=== PATIENT | male | born 1985 | race African-American/Black ===

== ENCOUNTER 2018-08-10 09:40 | Emergency (ER) | payer MEDICAID ==
[~2018-08-10] VITALS: Ht 185.4 cm; Wt 235.0 kg
[2018-08-10 09:47] VITALS: BP 146/92; Ht 185.4 cm; Wt 235.0 kg
== END 2018-08-10 10:25 | disposition home or self-care (01) ==
LOC: ED 09:40
DX: J02.9 Acute pharyngitis, unspecified (principal); R51 Headache; R05 Cough; I10 Essential (primary) hypertension
CPT/HCPCS: J1885

== ENCOUNTER 2018-08-17 16:02 | Emergency (ER) | payer MEDICAID ==
[~2018-08-17] VITALS: Ht 185.4 cm; Wt 220.9 kg
[2018-08-17 16:10] VITALS: Ht 185.4 cm; Wt 220.9 kg
[2018-08-17 18:29] VITALS: BP 155/90
== END 2018-08-17 18:29 | disposition home or self-care (01) ==
LOC: ED 16:02
DX: H66.92 Otitis media, unspecified, left ear (principal); I10 Essential (primary) hypertension; J45.909 Unspecified asthma, uncomplicated

== ENCOUNTER 2019-06-27 07:55 | Emergency (ER) | payer MEDICAID, SELFPAY ==
[~2019-06-27] VITALS: Ht 188 cm; Wt 179.2 kg
[2019-06-27 07:57] VITALS: Ht 188 cm; Wt 179.2 kg
[2019-06-27 10:26] VITALS: BP 137/73
== END 2019-06-27 10:26 | disposition home or self-care (01) ==
LOC: ED 07:55
DX: J06.9 Acute upper respiratory infection, unspecified (principal); I10 Essential (primary) hypertension; Z20.828 Contact with and (suspected) exposure to other viral communicable diseases; J45.909 Unspecified asthma, uncomplicated
CPT/HCPCS: 87804; Q0092